=== PATIENT | female | born 1995 | race Two or more races ===

== ENCOUNTER 2021-05-07 09:00 | Inpatient (IN) | payer OTHER ==
[~2021-05-07] VITALS: Ht 160 cm; Wt 2.7 kg
[2021-05-15] MEDS ORDERED: PERCOCET 5-3251 EACH PO (07:20)
== END 2021-05-15 13:46 | disposition home or self-care (01) | DRG 788 ==
LOC: O/R 05-12 05:52 → OB/GYN 05-12 05:52
PROVIDERS: ADMIT Specialist; ATTEND Specialist
PROC: 4A1HXCZ Monitoring of Products of Conception, Cardiac Rate, External Approach (ICD-10-PCS; 2021-05-12)
PROC: 10D00Z1 Extraction of Products of Conception, Low, Open Approach (ICD-10-PCS; principal; 2021-05-12 07:00)
DX: O34.211 Maternal care for low transverse scar from previous cesarean delivery (principal); Z3A.39 39 weeks gestation of pregnancy; Z37.0 Single live birth; Z20.822 Contact with and (suspected) exposure to COVID-19